=== PATIENT | male | born 1930 | race Caucasian/White ===

== ENCOUNTER → 2017-08-20 | Outpatient (CLI) | payer MEDICARE, OTHER ==
[2017-08-20 13:41] LABS: eGFR (African) > 60; eGFR (Non-African) 56
== END ==
LOC: LAB 12:57
PROVIDERS: ATTEND Nurse Practitioner
DX: I50.30 Unspecified diastolic (congestive) heart failure (principal)
CPT/HCPCS: 36415; 80048

== ENCOUNTER 2017-08-29 14:27 | Outpatient (CLI) | payer MEDICARE, OTHER ==
[2017-08-29 15:15] LABS: eGFR (African) > 60; eGFR (Non-African) 51
== END 2017-08-29 14:30 ==
LOC: LAB 14:27
PROVIDERS: ATTEND Nurse Practitioner
DX: I50.23 Acute on chronic systolic (congestive) heart failure (principal)
CPT/HCPCS: 36415; 80048

== ENCOUNTER 2017-09-12 10:06 | Outpatient (CLI) | payer MEDICARE, OTHER ==
[2017-09-12 10:59] LABS: eGFR (African) > 60; eGFR (Non-African) 56
== END 2017-09-12 11:22 ==
LOC: LAB 10:06
PROVIDERS: ATTEND Internal Medicine Cardiovascular Disease
DX: I50.23 Acute on chronic systolic (congestive) heart failure (principal)
CPT/HCPCS: 36415; 80048

== ENCOUNTER 2017-12-10 | Inpatient (IN) | payer SELFPAY ==
--- NOTE | 2018-01-30 16:03 | Discharge Summary ---
DATE OF ADMISSION TO [facility]: December 10, 2017 DATE OF DISCHARGE: January 25, 2018 DISCHARGE DIAGNOSES: 1. Weakness. 2. Chronic pain. 3. Rheumatoid arthritis. 4. Peripheral neuropathy. 5. Parkinson disease. 6. Hypertension. HOSPITAL COURSE: Patient was admitted to [facility] care after being in skilled care for weakness from hospitalization for pneumonia. His was unable to care for him at home, so he was admitted for further care to [facility]. He did well. His course was uneventful. He was discharged home to her in fair condition. CONDITION ON DISCHARGE: Fair condition. DISCHARGE ACTIVITY: Ad rupal with home health. DISCHARGE DIET: Regular. MEDICATIONS ON DISCHARGE: 1. Omeprazole 20 mg daily. 2. Aspirin 81 mg daily. 3. Flonase 1 spray each nostril daily. 4. Lisinopril 2.5 mg daily. 5. Oxycodone 5 mg every morning. 6. Prednisone 15 mg daily. 7. Fosamax 70 mg weekly. 8. Metamucil daily. 9. MS Contin 10 mg at noon. 10. Colace 100 mg t.i.d. 11. Tylenol 500 mg t.i.d. 12. Sinemet 25/100 mg 1 p.o. b.i.d. 13. Gabapentin 600 mg b.i.d. 14. Alpha Lipoic Acid 200 mg daily. 15. Nerve Repair Optimizer daily. 16. Nerve Renew daily. 17. Lasix 20 mg daily. MTDD
== END 2018-01-25 13:40 | disposition home health service (06) | DRG 948 ==
PROVIDERS: ADMIT Family Medicine

== ENCOUNTER 2018-03-06 14:45 | Inpatient (IN) | payer SELFPAY ==
[2017-12-10 10:56] VITALS: BP 104/66
--- NOTE | 2018-03-11 09:23 | History and Physical Report ---
CHIEF COMPLAINT: Weakness. HISTORY OF PRESENT ILLNESS: This is an 87-year-old who is being admitted to [facility] from [facility] where he presented a week ago with weakness for the past week. At that time, it was noted his white blood count was 20,000. Chest x-ray and urinalysis were negative. He was started on Solu-Medrol for suspected flare of his rheumatoid arthritis and his white blood cell count went up to 35,000 today on discharge. He had mild dehydration. His baseline creatinine was 1.4 and on admission it was 1.7. He was given IV fluids and it came down to 1.25. He has a history of a chronic elevated troponin. It was felt he was too weak to go home. His reports that until 2 days ago, he was doing pretty well and walked 150 feet with therapy; but in the past 2 days, he has been too weak to walk or get out of bed and has been a three-person assist for simply standing up. Patient tells me he is very weak and has really gone downhill over the past 2 days before his discharge. PAST MEDICAL HISTORY: 1. Congestive heart failure. His ejection fraction is 45% to 50%. 2. Hearing loss. 3. Hypertension. 4. Parkinson's disease. 5. Peripheral neuropathy. 6. Rheumatoid arthritis. 7. Remote history of a stroke. PAST SURGICAL HISTORY: 1. Some sort of ankle surgery in the past. 2. Right ganglion cyst. 3. Bladder surgery. 4. Hernia repair. 5. Bilateral knee replacements. 6. Nerve stimulator in his back. 7. Bilateral hip replacement. 8. TURP. MEDICATIONS: Please see the list in the chart. CODE STATUS: FULL CODE. IMMUNIZATIONS: He reports he has had his Pneumonia and his Prevnar shots, as well as he gets an influenza shots. SOCIAL HISTORY: He is a retired boggs. He lives with his . He smoked when he was 19 years old for 30 days and then quit smoking. FAMILY HISTORY: His mom had heart disease and diabetes. Dad had cancer. Sister with hypertension. A brother with heart disease, sleep apnea, and pernicious anemia. PHYSICAL EXAMINATION: Vital Signs: T: 98.2, P: 110, R: 28, oxygen saturation is 93% on his 3 liters. General: He is chronically-ill male who appears weak. HEENT: His TMs are clear. Oropharynx is pink and moist. Neck: Supple. Lungs: Clear to auscultation bilaterally. Heart: Regular rate and rhythm without a murmur. Abdomen: His abdomen is mildly distended but soft. Extremities: Show 1+ edema. ASSESSMENT AND PLAN: 1. Weakness. We will admit patient to [facility]. Although I am very concerned him, we will watch him closely overnight. 2. Rheumatoid arthritis. We will plan for a prednisone taper very slowly per Dr. García's request. He reports his elevated white blood cell count is due to this. We will also watch the white count carefully. Without a source of infection, I am worried about a cancerous process. 3. Parkinson's disease. We will continue his Sinemet. Get physical therapy and occupational therapy involved. 4. Heart disease, appears stable, so we will watch closely. MTDD
--- NOTE | 2018-03-11 09:49 | Discharge Summary ---
DATE OF ADMISSION: March 06, 2018 DATE OF DISCHARGE: March 08, 2018 CHIEF COMPLAINT: 1. Respiratory distress. 2. Oliguria. 3. Tachycardia. 4. Weakness. HISTORY OF PRESENT ILLNESS: This is an 87-year-old who is being admitted to [facility] from [facility] where he presented a week ago with weakness for the past week. At that time, it was noted his white blood count was 20,000. Chest x-ray and urinalysis were negative. He was started on Solu-Medrol for suspected flare of his rheumatoid arthritis and his white blood cell count went up to 35,000 today on discharge. He had mild dehydration. His baseline creatinine was 1.4 and on admission it was 1.7. He was given IV fluids and it came down to 1.25. He has a history of a chronic elevated troponin. It was felt he was too weak to go home. His reports that until 2 days ago, he was doing pretty well and walked 150 feet with therapy; but in the past 2 days, he has been too weak to walk or get out of bed and has been a three-person assist for simply standing up. Patient tells me he is very weak and has really gone downhill over the past 2 days before his discharge. HOSPITAL COURSE: Patient was admitted to [facility] from [facility]. It was obvious he was not doing well when he arrived and he seemed to get worse overnight. He was in a great deal of pain. He only had 15 mL of urine output. He was tachycardic, tachypneic, and in respiratory distress. He was transferred back to [facility] with the same medications that he came in on. Please see current list. MTDD
== END 2018-03-07 09:48 | disposition short-term general hospital (02) | DRG 204 ==
LOC: ICF 14:45
PROVIDERS: ADMIT Family Medicine; ATTEND Family Medicine
DX: R06.09 Other forms of dyspnea (principal); R34 Anuria and oliguria; R00.0 Tachycardia, unspecified; R53.1 Weakness